=== PATIENT | female | born 1990 | race Caucasian/White ===

== ENCOUNTER 2023-12-15 16:41 | Outpatient (CLI) | payer OTHER, SELFPAY ==
--- NOTE | 2023-12-15 17:00 | CRLHL7_ITS ---
For Patients: As a result of the Century Cures Act, medical imaging exams and procedure reports are released immediately into your electronic medical record. You may view this report before your referring provider. If you have questions, please contact your health care provider. INDICATION: First trimester scan, establish dates. COMPARISON: None. TECHNIQUE: Real-time nunez-scale imaging of the pelvis was performed. FINDINGS: Sonographic imaging demonstrates a single living intrauterine gestation. The embryo demonstrates a regular cardiac rate measuring 169 beats per minute. The embryo`s crown-rump length measurement of 2.7 cm corresponds to a gestational age of 9 weeks 4 days with a sonographic due date of 07/15/2024. There is a normal-appearing yolk sac. There are no gross abnormalities noted within the embryo at this early state of development. The gestational sac has a normal appearance. There is a 2.0 x 1.5 x 1.2 cm perigestational hemorrhage. The amount of fluid within the sac appears appropriate for gestational age. The cervix is closed. The myometrium appears normal. The ovaries are of normal size. Corpus luteal cyst right ovary. There are no suspicious fluid collections noted in the cul-de-sac. IMPRESSION: Single living intrauterine with sonographic gestational age 9 weeks 4 days and sonographic due date 07/15/2024. Left-sided subchorionic hemorrhage measuring 2.0 x 1.5 x 1.2 cm. Dictated by John Arredondo MD @ 12/16/2023 11:45:04 AM (Electronically Signed)
== END 2023-12-15 16:42 | disposition home or self-care (01) ==
LOC: US 16:41
PROVIDERS: Visit Provider Physician Assistant
DX: Z34.91 Encounter for supervision of normal pregnancy, unspecified, first trimester (principal); O20.9 Hemorrhage in early pregnancy, unspecified; Z3A.09 9 weeks gestation of pregnancy
CPT/HCPCS: 76817

== ENCOUNTER 2023-12-15 18:12 | Outpatient (CLI) | payer OTHER, SELFPAY ==
[2023-12-15 21:50] LABS: Chlamydia DNA Amplified* Not Detected (No Detected); GC DNA Amplified* Not Detected (No Detected)
== END 2023-12-15 18:13 | disposition home or self-care (01) ==
PROVIDERS: PCP Physician Assistant; Visit Provider Physician Assistant
DX: Z34.01 Encounter for supervision of normal first pregnancy, first trimester (principal); Z67.41 Type O blood, Rh negative
CPT/HCPCS: 86592; 86703; 86704; 86706; 86762; 86787; 86803; 86850; 86900; 86901; 87086; 87340; 87491; 87591

== ENCOUNTER 2024-03-08 15:43 | Outpatient (CLI) | payer OTHER, SELFPAY ==
--- NOTE | 2024-03-08 16:00 | US_ITS ---
Patient: OK HUERTA Facility:?[facility] Patient ID:?[id number] Site Patient ID:?[id number]. Site :?1991 Study:?US-OB Pelvis anatomy-03/08/2024 4:43:47 PM Ordering Physician:Daina Valladares Final Report: OB ULTRASOUND LMP: 10/08/2024. LULA by LMP: 07/14/2024. GA: 21w, 5d. Single. INDICATION: screen. COMPARISON: None. position: Vertex. Cervix: Visualized. Technique: Transabdominal. Length of closed cervix: 3.3 cm. Placenta/cord: Anterior. Technique: Transabdominal. Placenta tip to internal OS: 9.6 cm. Umbilical Cord: 3-vessel cord. Placenta insertion: Central. Amniotic Fluid: 4.1 cm SDP SURVEY: Observed Structures Cerebellum: Yes. 2.3 cm; 22 w 6 d. Cisterna Magna: Yes. 5.5 mm. Nuchal Fold: Yes. 3.3 mm. Lateral Ventricle: Yes. 5.4 mm. CSP: Yes. Midline Falx: Yes. Choroid Plexus: Yes. Spine: Yes. Stomach: Yes. Abd Cord Insertion: Yes. Urinary Bladder: Yes. Kidneys: Yes. Diaphragm: Yes. Nose/lips: Yes. Orbital view: Yes. Profile: Yes. Upper Extremities: Yes. Lower Extremities: Yes. Hands: Yes. Feet: Yes. Four-Chamber Heart: Yes. LVOT: Yes. RVOT: Yes. 3VV: Yes. 3VTV: Yes. BPD: 5.4 cm. 22 w 4 d, 78%. HC: 19.6 cm. 21 w 5 d, 40%. AC: 16.0 cm. 21 w 0 d, 22%. FL: 3.6 cm. 21 w 2 d, 27%. FL/AC: 22.45%. HC/AC Ratio: 1.23. Heart rate: 152 beats per minute. age by this US: 21 w 6 d. LULA by this US: 07/13/2024. EFW: 413 g. Weight: 15 oz. Percentile by LULA: 24%. IMPRESSION: 1. Single viable intrauterine . 2. Estimated weight 24th percentile. 3. Normal anatomic survey. Jorge Jenkins M.D. Body/Diagnostic Radiologist [email or web address] D& Transcribed: 10:00 a.mNiharika barber/Dictated by: Jorge Jenkins MD @ 03/09/2024 8:54:00 AM Signed by:?Jorge Jenkins MD @03/09/2024 10:06:23 AM (Electronic Signature)
== END 2024-03-08 15:44 | disposition home or self-care (01) ==
LOC: US 15:43
PROVIDERS: Visit Provider Advanced Practice Midwife
DX: Z34.92 Encounter for supervision of normal pregnancy, unspecified, second trimester (principal); Z3A.21 21 weeks gestation of pregnancy
CPT/HCPCS: 76805

== ENCOUNTER 2024-04-26 08:09 | Outpatient (CLI) | payer OTHER, SELFPAY | END 2024-04-26 08:10 | disposition home or self-care (01) | PROVIDERS: Visit Provider Advanced Practice Midwife | DX: Z34.02 Encounter for supervision of normal first pregnancy, second trimester (principal) | CPT/HCPCS: 86592; 86850 ==

== ENCOUNTER 2024-06-21 08:30 | Outpatient (CLI) | payer OTHER, SELFPAY | END 2024-06-21 08:31 | disposition home or self-care (01) | LOC: NFLDREF 06-23 10:20 | PROVIDERS: Visit Provider Advanced Practice Midwife | DX: Z34.03 Encounter for supervision of normal first pregnancy, third trimester (principal) | CPT/HCPCS: 87081; 87653 ==

== ENCOUNTER 2024-06-22 09:14 | Outpatient (CLI) | payer OTHER, SELFPAY ==
--- NOTE | 2024-06-22 09:30 | CRLHL7_ITS ---
For Patients: As a result of the Century Cures Act, medical imaging exams and procedure reports are released immediately into your electronic medical record. You may view this report before your referring provider. If you have questions, please contact your health care provider. INDICATION: Third trimester scan, evaluate growth. small for dates COMPARISON: 03/08/2024 TECHNIQUE: Real time nunez scale imaging of the fetus was performed. FINDINGS: Sonographic imaging demonstrates a single living intrauterine gestation. Fetus demonstrates a regular cardiac rate of 129 beats per minute. Fetus has a vertex position. The placenta lies anterior. Amniotic fluid volume appears normal and there is a single deepest vertical pocket: 5.4 cm. The estimated weight is 2805gm which lies at the 31st %. On the prior OB ultrasound exam dated 03/08/2024 the estimated weight was at the 24th%. BPD less than 3rd percentile. HC 55th percentile. AC 58th percentile. FL 41st percentile. The HC/AC ratio measures 1.02 range (0.93-1.10). Renal pelvis measures 4.2 millimeters, considered normal. IMPRESSION: Sonographic gestational age 35 weeks 2 days and a sonographic due date 07/25/2024. Sonographic age 11 days behind the clinical age. Estimated weight 31st percentile. Abdominal circumference 58th percentile. BPD less than 3rd percentile. Dictated by John Arredondo MD @ 06/23/2024 6:44:41 AM (Electronically Signed)
== END 2024-06-22 09:15 | disposition home or self-care (01) ==
LOC: US 09:14
PROVIDERS: Visit Provider Advanced Practice Midwife
DX: O36.5930 Maternal care for other known or suspected poor fetal growth, third trimester, not applicable or unspecified (principal); Z3A.35 35 weeks gestation of pregnancy
CPT/HCPCS: 76816

== ENCOUNTER 2024-07-20 03:57 | Outpatient (CLI) | payer OTHER, SELFPAY ==
[2024-07-20 04:14] VITALS: PULSE 62; O2SAT 98
[2024-07-20 04:15] VITALS: BP 122/72; PULSE 57; TEMP 37
--- NOTE | 2024-07-27 08:51 | PC.OBNST ---
NST Note NST Note Start: 07/20/24 04:01 Freq: ONCE Status: Discharge Protocol: Document 07/20/24 06:43 [email or web address] (Rec: 07/20/24 06:45 TALA Mora) NST Note 1 Para (# of births) 0 EDC 07/14/24 Gestational Age In Weeks & Days 40 Weeks & 6 Days Patient Presented with Complaint(s) of Contractions/cramping Other Complaints Initial SVE was 1.5/50/0 way off to the left with a lot of brown discharge with exam. 1.5 hours later after being up and walking her SVE was 2/70/0 and much more mid position. Strip is beautifully reactive. Her contractions are mild/ moderate intensity. She appears fairly comfortable still. Reactive Yes Appropriate for Gestational Age Yes JESUS Rocha Case Date 07/20/24 Reactive Yes Appropriate for Gestational Age Yes JESUS Albert RN Date 07/20/24 OB NST charge Yes Complete NST Note via Write Note Yes The provider's electronic signature indicates the NST is reactive/appropriate for gestational age. *Note to provider: If an addendum is required, open the patient's chart and click on the note under the Nurse/Allied Health tab.
== END 2024-07-20 06:28 | disposition home or self-care (01) ==
LOC: OB OUT 03:57 → OB 03:58
PROVIDERS: Visit Provider Advanced Practice Midwife
DX: Z34.93 Encounter for supervision of normal pregnancy, unspecified, third trimester (principal); Z3A.40 40 weeks gestation of pregnancy
CPT/HCPCS: 59025; G0463

== ENCOUNTER 2024-07-21 07:41 | Inpatient (IN) | payer OTHER, SELFPAY ==
[2024-07-21] VITALS (22 sets, daily range): BP systolic 112–148; BP diastolic 48–72; PULSE 52–69; RESP 16–18; TEMP 36.3–37.1; O2SAT 95–100; BMI 31.7
--- NOTE | 2024-07-21 08:02 | P.LDBA_ITS ---
Documented by User: Suzanne Oconnor CNM 07/21/24 09:00 Subjective History of Present Illness Time Seen by Provider: 08:03 Date Seen: 07/21/24 Narrative: Patient is being admitted to Labor and Delivery for prodromal labor, desiring augmentation and therapeutic rest with morphine. She is a 33 year old at 41w0d gestation. Her full history and physical was dictated by Howie Charles CNM on 06/28/2024. Please see this for details. Specific Issues/Plans H&P done by Jessica Charles CNM on 06/28/24 1. Rh negative, O neg Rhogam: NA, FOB is Rh negative-have documentation to confirm 2. Anatomy scan WNL, EFW 24%. Consider follow up if measuring small. Growth US ordered at 36 wks: EFW 31% Flu shot: Declines COVID shot: Declines OB - Problem Based A/P Additional Plan (1) : Status: Acute (2) GBS (group B Streptococcus carrier), +RV culture, currently : Status: Acute (3) Rh negative status during : Status: Acute (4) Desultory labor: Status: Acute (5) Pain during labor: Status: Acute Plan ASSESSMENT:? at 41 weeks gestation? GBS positive? Uncomplicated ? Postterm augmentation for prodromal labor? Blood type:?O neg ?? PLAN:? 1. Antibiotic prophylaxis treatment per protocol? 2. Reviewed risks and benefits of IOL with pitocin vs cytotec. After discussion, plan to start Pitocin.? 3. Desires water . Consent signed. Hep C negative.? 4. Candidate for analgesia of choice. Planning unmedicated .? 5. Anticipate ? 6. Expectant management at this time.? 7. IV and monitoring plan?per policy 8. Give morphine 10mg IM with vistaril 100mg now for therapeutic rest. ? OB Result Labs Blood Type: 0 (-) negative GBS Status: positive OB Exam Physical Exam Vital signs: Pulse BP Pulse Ox 65 125/72 95 07/21/24 05:45 07/21/24 05:45 07/21/24 05:45 Detailed Labor and Delivery Exam Patient Gravid: Yes Dilation (cm): 3 Effacement (%): 80 Consistency: soft Contraction Frequency: q3-4min Contraction duration (sec): 90 Tachysystole: No Contraction intensity: Moderate Fetus (Single) Station: 0 Amniotic Membrane Status: intact Heart Rate Baseline: 120 Monitor Accelerations: Present Monitor Decelerations: None Mat Cleaning Machine Operator Variability: Moderate (6-25) Documented by User: Goldie Carrasquillo CNM 07/21/24 15:52 Subjective History of Present Illness Specific Issues/Plans H&P done by Jessica Charles CNM on 06/28/24 1. Rh negative, O neg Rhogam: NA, FOB is Rh negative-have documentation to confirm 2. Anatomy scan WNL, EFW 24%. Consider follow up if measuring small. Growth US ordered at 36 wks: EFW 31% Flu shot: Declines COVID shot: Declines OB - Problem Based A/P Additional Plan (1) : Status: Acute (2) GBS (group B Streptococcus carrier), +RV culture, currently : Status: Acute (3) Rh negative status during : Status: Acute (4) Desultory labor: Status: Acute (5) Pain during labor: Status: Acute Plan ASSESSMENT:? G[]P[] at [] weeks gestation? GBS []? Uncomplicated ? Elevated BP on admit? Postterm IOL? Blood type:? ?? PLAN:? 1. [Antibiotic prophylaxis treatment per protocol]? 2. Reviewed risks and benefits of IOL with pitocin vs cytotec. Pt prefers cytotec. Pitocin to follow if needed.? 3. Desires water . Consent signed. Hep C negative.? 4. Candidate for analgesia of choice. Planning unmedicated .? 5. Monitor blood pressures. Consider labs if continue to be elevated.? 6. Anticipate ? 7. Expectant management at this time.? 8. IV and monitoring plan? ?
[2024-07-21 08:42] LABS: Basophils Absolute Auto 0.03 K/uL (0.00-0.30); Basophils Percent Auto 0.3 % (0.0-3.0); Eosinophils Absolute Auto 0.05 K/uL (0.00-0.50); Eosinophils Percent Auto 0.5 % (0.0-7.0); Hematocrit 35.2 % (33.0-51.0); Hemoglobin* 12.1 gm/dL (12.0-16.0); Immature Granulocytes Abs Auto 0.04 K/uL (0.00-0.30); Immature Granulocytes Pct Auto 0.4 %; Lymphocytes Percent Auto 11.1 % (20-44); Mean Corpuscular HGB Conc 34 gm/dL (32-36); Mean Corpuscular Hemoglobin 31 pg (26-34); Mean Corpuscular Volume 89 fL (80-100); Monocytes Percent Auto 5.1 % (0.0-11.0); Neutrophils Percent Auto 82.6 % (42.0-72.0); Platelet Count* 242 K/uL (140-440); RDW Coefficient of Variation % 12.2 % (11.5-15.5); Red Blood Count 3.96 m/uL (4.00-5.20); White Blood Count* 10.35 K/uL (4.50-11.00)
[2024-07-21] MEDS: MORPHINE 10 MG/ML inj IM (08:47)
[2024-07-21] MEDS: hydrOXYzine pamoate 25 MG CAPSULE 100 MG PO (08:47)
[2024-07-21 08:54] LABS: Slide Review Reflex No
[2024-07-21] MEDS: LACTATED RINGERS 1000 ML 1,000 ML 124 ML IV (10:01)
[2024-07-21] MEDS: OXYTOCIN 30 unit/500 ML in NS 30 UNIT/500 ML BAG IVPB (10:01)
[2024-07-21 14:53] LABS: Hematocrit 36.2 % (33.0-51.0); Hemoglobin* 12.6 gm/dL (12.0-16.0); Mean Corpuscular HGB Conc 35 gm/dL (32-36); Mean Corpuscular Hemoglobin 31 pg (26-34); Mean Corpuscular Volume 88 fL (80-100); Platelet Count* 236 K/uL (140-440); White Blood Count* 14.51 K/uL (4.50-11.00)
[2024-07-21 15:12] LABS: Slide Review Reflex No
[2024-07-21 15:15] LABS: Creatinine* 0.5 mg/dL (0.5-1.5); Est. Creatinine Clearance* 139.49; Estimated Glomerular Filt Rate 128 ml/min
[2024-07-21 15:16] LABS: Alanine Aminotransferase* 17 U/L (4-35); Aspartate Amino Transferase* 36 U/L (12-35); Blood Urea Nitrogen* 6 mg/dL (5-24); Total Protein Urine 34 mg/dL
[2024-07-21 15:17] LABS: Creatinine Urine 167.8 mg/dL
[2024-07-21] MEDS: AMPICILLIN 2 GM in 0.9 % SODIUM CHLORIDE Mini-bag 100 ML IVPB (15:57)
[2024-07-21] MEDS: CALCIUM CARBONATE 500 MG CHEW PO (16:01)
--- NOTE | 2024-07-21 16:45 | PM.OBPNL ---
Subjective Time Seen by Provider: 12:30 Date Seen: 07/21/24 Objective Vital Signs: Last Vital Signs Temp 97.9 F 07/21/24 08:19 Pulse 53 L 07/21/24 16:02 Resp 16 07/21/24 08:19 BP 148/71 H 07/21/24 16:02 Pulse Ox 100 07/21/24 16:00 Comments: Silva was able to sleep for a few hours this morning and feels much more rested than previously. Pitocin was started and she has been nino regularly. She is coping well and is able to talk trough the contractions. Declines a cervical check at this time. Contractions Monitor mode: External Contraction Frequency: 2-4 Contraction pattern: Regular Contraction intensity: Moderate Pitocin Rate (mU/min): 3 Assessment Assessment: prodromal labor Station: 0 Status: Category ll Heart Rate Baseline: 120 [place] Feeder Variability: Moderate (6-25) Monitor Accelerations: Present Monitor Decelerations: Early Plan Plan: ASSESSMENT:? at 41 weeks gestation? GBS positive? Uncomplicated ? Postterm augmentation for prodromal labor? Blood type:?O neg ?? PLAN:? 1. Antibiotic prophylaxis treatment per protocol. Begin with active labor. ? 2. Continue with Pitocin augmentation.? 3. Desires water . Consent signed. Hep C negative.? 4. Candidate for analgesia of choice. Planning unmedicated .? 5. Anticipate ? 7. IV and monitoring plan?per policy
--- NOTE | 2024-07-21 16:50 | PM.OBPNL ---
Subjective Date Seen: 07/21/24 Narrative: Silva has continued to have regular contractions that have increased in intensity. Over the last 15-20 minutes she has begun to feel pressure with the contractions. She is requesting hydrotherapy and the tub is currently being filled. her Pitocin remains at 3mU/min. Declines SVE at this time. Denies leaking fluids. Prophylactic antibiotics were began around 1400. Objective Vital Signs: Last Vital Signs Temp 97.9 F 07/21/24 08:19 Pulse 53 L 07/21/24 16:02 Resp 16 07/21/24 08:19 BP 148/71 H 07/21/24 16:02 Pulse Ox 100 07/21/24 16:00 Contractions Monitor mode: External Contraction Frequency: 2-3 Contraction pattern: Regular Contraction intensity: Strong/Firm Pitocin Rate (mU/min): 3 Assessment Assessment: active labor Station: 0 Status: Category l Heart Rate Baseline: 125 Order Tracer Variability: Moderate (6-25) Monitor Accelerations: Present Monitor Decelerations: None Plan Plan: ASSESSMENT:? at 41 weeks gestation? GBS positive? Uncomplicated ? Labor type: augmented prodromal labor, now active labor? Blood type:?O neg ?? PLAN:? 1. Continue antibiotic prophylaxis treatment per protocol.? 2. Continue with Pitocin augmentation. Can consider decreasing rate if contractions continue and coping decreases. ? 3. Desires water . Consent signed. Hep C negative.? 4. Candidate for analgesia of choice. Planning unmedicated .? 5. Anticipate ? 6. Encourage ambulation and position changes to promote physiologic labor and .? 7. IV and monitoring plan?per policy
[2024-07-21] MEDS: AMPICILLIN 1 GM in 0.9 % SODIUM CHLORIDE Mini-bag 100 ML IVPB (19:32)
--- NOTE | 2024-07-21 20:22 | W.PM.OBVAGDE ---
OB Procedure Vag Delivery Mother Details Mother Details: The patient is a 33 year-old, 1, Para 0,t admitted on 07/21/24 at 41.0 Days gestation. : 1 Para: 1 Weeks Gestation: 41.0 Admission Date: 07/21/24 Additional Details Amniotic Membrane Status: intact Amniotic Membrane Rupture Date: 07/21/24 Amniotic Membrane Rupture Time: 17:21 Amniotic Membrane Fluid Description: Clear Analgesia/Anesthesia Type: None Waterbirth: Yes Pitcoin: Yes (augmentation and AMTSL) Intrapartal Events: Labor Augmentation Delivery augmentation: pitocin Labor Onset: 15:45 Complete: 17:21 Pushin:55 Heart: heart tones during second stage were category 2 but difficult to trace despite frequent readjustments. Baseline 120's with moderate variability and + accels. Variable decels with good return to baseline. Difficult to determine type of decel in the last 15 minutes of pushing with . Delivery Details Delivery Date: 07/21/24 Delivery Time: 19:52 Route of delivery: Gender: Female Viability: Alive; Heart Rate Present Position at Delivery: OA Delivery Details: Patient was admitted for latent labor at 41.0 weeks desiring augmentation with Pitocin. SROM noted at 1721 with clear fluid. Patient was complete at 1721 and pushing at 1755. of a viable female at 1952 on her back supported by her partner in the tub. Vertex delivered OA. No nuchal cord or shoulder. Body delivered easily and without incident. Body cord was noted after delivery and was easily reduced before infant passed to mothers abdomen. Stimulation was used to elicit a cry. Cord was clamped and cut at about 1 minute due to lack of respiratory effort, tone, and color for baby to be brought to the warmer for stimulation and assessment. Improved after going to the warmer and baby was returned to mom shortly after when she was brought to the bed and settle in bed. APGARS were 6 at one minute and 8 at five minutes respectively. Mouth was bulb suctioned. Cord blood was collected. Intact placenta with a 3 vessel cord delivered spontaneously at 2000. It was noted to have a marginal cord insertion. Fundus firm. 1st identified and not repaired after shared decision making as it was hemostatic. There was a labial split noted on the superior labia near the clitoris that appears to have been present before delivery. There was no obvious laceration noted on the superior portion of the labial split and minimal tear to the inferior portion. She denies knowing that it was there, irritation present at that site prior to delivery, or know trauma. Presumably it was present before delivery. There was not a way to consider repair that would adhere so after shared decision making it was decided not to attempt a repair. QBL 50 cc. Mother and baby stable; mother plans to breastfeed. weight 6lb 6oz.? 1 Minute Interval Total Score: 6 5 Minute Interval Total Score: 8 Additional Details Shoulder Dystocia: No Placenta Delivery Time: 20:01 Placental Delivery Description: Spontaneous Procedure Done: Global Blood Loss: 50 Laceration: Perineal - 1st Degree (not repaired ) Episiotomy Description: None Blood Loss Measurement Type: QBL Bakri Used: No Sponge/Need Count Correct: Yes Cord Vessel Description: 3 Vessels, Loose and Around Body Event Summary Status: Mother and infant were stable after delivery. Disposition: floor
[2024-07-21] MEDS: IBUPROFEN 600 MG TABLET PO (21:14)
[2024-07-22 00:19] VITALS: BP 113/63; PULSE 69; RESP 16; TEMP 37; O2SAT 96
[2024-07-22 03:39] VITALS: BP 121/73; PULSE 69; RESP 16; TEMP 37.1; O2SAT 97
[2024-07-22] MEDS: IBUPROFEN 600 MG TABLET PO ×4 (03:55→22:28)
--- NOTE | 2024-07-22 08:18 | P.OBPN_ITS ---
OB - PN:Subj Subjective Date Seen: 07/22/24 Narrative: Silva is a 33 y.o. G 1 P 1 who was admitted to L & D for induction of labor after days of prodromal for post-dates. ?She had a NVD that was uncomplicated. The patient feels well. ?The pain is well controlled with current medications. ?She has no new complaints. ?She is breast feeding and reports things are going well. the patient has done well.? Vitals have been stable.? She has remained afebrile.? Has a good appetite, is tolerating a general diet. ?She is voiding without difficulty.? She is passing gas and has not had a bowel movement.? She is ambulating and denies any dizziness.? Has small amount of rubra lochia. Problems: none OB - PN: Obj Exam Physical Exam: Vital signs: Temp Pulse Resp BP Pulse Ox O2 Del Method 98.8 F 69 16 121/73 97 Room Air 07/22/24 03:39 07/22/24 03:39 07/22/24 03:39 07/22/24 03:39 07/22/24 03:39 07/22/24 03:39 Narrative: GENERAL APPEARANCE:? normal affect, alert, no distress MOOD:? appropriate CHEST:? clear to auscultation HEART:? regular rate and rhythm ABDOMEN:? soft, non-tender the uterine fundus is At Umbilicus, Midline and is appropriate for the stage of recovery. PERINEUM:? mild edema of the perineum, there is a Perineal Laceration,?1st degree that is healing well. EXTREMITIES:? normal and no edema OB - PN: Obj Data Labs Labs: Laboratory Results - last 24 hr 07/21/24 07/21/24 08:05 14:44 WBC 10.35 14.51 H RBC 3.96 L 4.10 Hgb 12.1 12.6 Hct 35.2 36.2 MCV 89 88 MCH 31 31 MCHC 34 35 RDW Coeff of Juan 12.2 Plt Count 242 236 Neut % (Auto) 82.6 H Lymph % (Auto) 11.1 L [place] % (Auto) 5.1 Eos % (Auto) 0.5 Baso % (Auto) 0.3 Neut # (Auto) 8.50 H Lymph # (Auto) 1.10 [place] # (Auto) 0.50 Eos # (Auto) 0.05 Baso # (Auto) 0.03 Abs Immat Gran (auto) 0.04 Imm/Tot Granulo (auto) 0.4 BUN 6 Creatinine 0.5 Estimated Creat Clear 139.49 Estimated GFR 128 AST 36 H ALT 17 Urine Creatinine 167.8 Protein/Creatinin Ratio 0.20 H Urine Total Protein 34 Blood Type O Negative Antibody Screen NEGATIVE OB - PN: A/P Delivery Assessment and Plan (1) care and examination immediately after delivery: Status: Acute (2) Rh negative status during : Status: Acute (3) Lactating mother: Status: Acute Plan day: 1 Plan: routine care Comments: plan: Routine OB, return in 4 weeks , may see if needed Hgb 12.6 prior to delivery. GHTN diagnosed by elevated BP greater than 4 hours apart Labs WNL Discharge home with BP cuff if does not already have one Follow up in 3-5 days Call for signs/symptoms of preeclampsia
[2024-07-22 08:22] VITALS: BP 118/69; PULSE 60; RESP 16; TEMP 36.6; O2SAT 96
[2024-07-22] MEDS: DOCUSATE SODIUM 100 MG CAPSULE PO (10:26)
[2024-07-22 13:09] VITALS: BP 126/79; PULSE 62; RESP 16; TEMP 36.6; O2SAT 97
[2024-07-22 16:38] VITALS: BP 128/80; PULSE 69; RESP 16; TEMP 36.6; O2SAT 97
[2024-07-22 22:00] VITALS: BP 122/81; PULSE 67; RESP 16; TEMP 36.8; O2SAT 98
[2024-07-23 01:41] LABS: Rapid Plasma Reagin (RPR) Non Reactive (Non Reactive)
[2024-07-23 06:13] VITALS: BP 132/79; PULSE 78; RESP 16; TEMP 37; O2SAT 98
[2024-07-23 09:00] VITALS: BP 131/85; PULSE 67; RESP 16; TEMP 36.6; O2SAT 98
--- NOTE | 2024-07-23 09:00 | PM.OBDSVD1 ---
DS: Providers Provider Date Seen: 07/23/24 Date of admission: 07/21/24 07:41 Primary care physician: Not a Local Provider Admitting Clinician: Goldie Carrasquillo CNM Attending Physician on discharge: Ines Baker CNM Date of Discharge: 07/23/24 DS: Diagnosis Discharge Diagnosis (1) care following vaginal delivery: Status: Acute (2) Lactating mother: Status: Acute Exam Narrative: Exam Narrative: GENERAL APPEARANCE:? normal affect, alert, no distress? MOOD:? appropriate? CHEST:? clear to auscultation and percussion? HEART:? regular rate and rhythm? ABDOMEN:? soft, non-tender the uterine fundus is U/2 and is appropriate for the stage of recovery. PERINEUM:? mild edema of the perineum, there is a 1st degree laceration that is healing well.? EXTREMITIES:? normal and no edema? Const: Vital Signs, click to edit/add: Vital Signs - 24 hr 07/22/24 13:09 07/22/24 16:38 07/22/24 22:00 Temperature 97.8 F 97.9 F 98.2 F Pulse Rate [Pulse Oximeter] 62 69 67 Respiratory Rate 16 16 16 Blood Pressure [Ri ght Arm] 126/79 128/80 122/81 Pulse Oximetry 97 97 98 Oxygen Delivery Me thod Room Air Room Air Room Air 07/23/24 06:13 Temperature 98.6 F Pulse Rate [Pulse Oximeter] 78 Respiratory Rate 16 Blood Pressure [Ri ght Arm] 132/79 Pulse Oximetry 98 Oxygen Delivery Me thod Room Air Documenting provider has reviewed patient's vital signs: yes OB - DS: Summary Hospital Course Hospital Course: Silva is a 33 year old G 1 P 1 at 41.0 weeks gestation that was admitted to the Center on 07/21/24 for prodromal labor. She had an uncomplicated vaginal delivery. She delivered a viable female . She is breast feeding and denies complications or concerns at this time. the patient has done well. Her pain is well controlled with current medications.? She has no new complaints.? Urinary output is adequate and she is voiding without difficulty.? Has a good appetite, is tolerating a general diet, is passing flatus, and has not yet had a bowel movement.? Has scant amount of rubra lochia.? She is ambulating well. Blood pressures have been stable since delivery. Will plan to send home a blood pressure cuff and recheck in the clinic in 3-5 days. Reviewed s/sx of preeclampsia. She is planning NFP and condoms for contraception. Peripartum Data delivery method: Vaginal Laceration description: Perineal - 1st Degree Episiotomy description: None complications: none Gender: Female Infant Discharge Plan: Home Status at Discharge Functional status at discharge: independent ambulation Overall status at discharge: patient is progressing back to baseline Time Spent with Patient Time attestation: Total time spent providing and/or coordinating discharge services: Discharge Plan Discharge Disposition: Home, Self-Care Date of Admission: 07/21/24 07:41 Primary Care Provider: Provider,Not a Local Condition: Stable Anticipated Discharge Date/Time: 07/23/24 00:00 Discharge Medications: New docusate sodium 100 mg Capsule 100 mg PO DAILY Qty: 90 0RF Rx Instructions: Take 1-2 tablets daily as needed for constipation. ibuprofen 600 mg Tablet 600 mg PO Q6H PRNQty: 30 0RF Continued Fish Oil 360-1,200 mg capsule,delayed release(DR/EC) 2 cap PO QDAY DHA 200 mg capsule 200 mg PO DAILY vitamin K2 100 mcg capsule 100 mcg PO QDAY ascorbic acid-elderberry fruit 100-50 mg tablet,chewable 1 tab PO DAILY cholecalciferol (vitamin D3) 50 mcg (2,000 unit) capsule 50 mcg PO QDAY magnesium oxide 200 mg magnesium tablet 200 mg PO BID Discharge Orders: Discharge Order (Routine); Ordered 07/23/24 Ordered By: Goldie Cararsquillo Patient Education: OB Vaginal/Breast Feeding Additional Instructions: Discharge instructions were reviewed with the patient including signs and symptoms of infection and home going medications.? Lifting Restrictions: 20 pounds for 6? weeks? ?? Do not drive while taking narcotic pain meds.? Off Work or School for 6 weeks.? ?? Symptoms to report to doctor:? -Bleeding that saturates more than one pad per hour? -Passing clots larger than the size of a golf ball? -Pain not relieved by prescribed medication? -Fever above 100.4 degrees Fahrenheit? -A foul vaginal odor? -Difficulty in emotions, mood and functions? -Thoughts of hurting yourself and/or ? -Painful, reddened area in your breast? -Any drainage, redness or tenderness in your IV/epidural site? -Severe headache that doesn't improve after taking medications? -Changes in vision, including temporary loss of vision, blurred vision, and/or light sensitivity? -Upper abdominal pain (usually under ribs on the right side)? -Decrease in urination or painful, frequent urinating? -Chest pain? -Shortness of breath? -Tenderness or pain with redness and/swelling in the calf(s) of your leg? ?? Blood pressure check in the clinic in 3-5 days. Follow Up in clinic in 2 and 6 weeks.? ?? consultation services are available to all mothers and babies for the first year after delivery.? To make an appointment, please call [phone].? Activity Level: Activity as Tolerated Discharge Diet: Regular Follow Up Appointments: Provider,Not a Local [Primary Care Provider] - [facility] [Provider Group] Forms: MyHealth Info Instructions
[2024-07-23] MEDS: IBUPROFEN 600 MG TABLET PO (09:21)
[2024-07-23] MEDS: DOCUSATE SODIUM 100 MG CAPSULE PO (09:21)
== END 2024-07-23 11:30 | disposition home or self-care (01) | DRG 807 ==
LOC: OB OUT 07:43 → OB 07:43
PROVIDERS: Admitting Provider Advanced Practice Midwife; Visit Provider Midwife
DX: O48.0 Post-term pregnancy (principal); Z37.0 Single live birth; Z3A.41 41 weeks gestation of pregnancy; O26.893 Other specified pregnancy related conditions, third trimester; Z67.41 Type O blood, Rh negative; O99.824 Streptococcus B carrier state complicating childbirth; O69.89X0 Labor and delivery complicated by other cord complications, not applicable or unspecified; O70.0 First degree perineal laceration during delivery; O13.5 Gestational [pregnancy-induced] hypertension without significant proteinuria, complicating the puerperium
CPT/HCPCS: 36415; 82565; 82570; 84156; 84450; 84460; 84520; 85025; 85027; 86592; 86850; 86900; 86901; G0463; A9270; J0290; J2270; J7120

== ENCOUNTER 2024-07-26 10:15 | Outpatient (CLI) | payer OTHER, SELFPAY | END 2024-07-26 10:16 | disposition home or self-care (01) | PROVIDERS: Visit Provider Advanced Practice Midwife | DX: O13.5 Gestational [pregnancy-induced] hypertension without significant proteinuria, complicating the puerperium (principal) | CPT/HCPCS: 82565; 84450; 84460; 84520 ==

== ENCOUNTER 2024-07-27 12:45 | Outpatient (CLI) | payer OTHER, SELFPAY ==
--- NOTE | 2024-07-27 14:16 | W.PM.LAC.MC ---
Consult Note - Mom Date of Visit Date of visit: 07/27/24 service delivery management consultant: Danielle Gallego Visit Code: Visit Patient's Information Phone number: [phone] : 1 Para: 1 Allergies No Known Drug Allergies Allergy (Verified 07/19/24 08:29) Mother's Medical History: Medical History (Updated 07/27/24 @ 00:01 by Background Daemon) GBS (group B Streptococcus carrier), +RV culture, currently ?O99.820 - Streptococcus B carrier state complicating (ICD-10) Rh negative status during ?O26.899 - Other specified related conditions, unspecified trimester (ICD-10) ?Z67.91 - Unspecified blood type, rh negative (ICD-10) Tibial plateau fracture ?S82.143A - Displaced bicondylar fracture of unspecified tibia, initial encounter for closed fracture (ICD-10) Work Plans: Return to work at 10 weeks Delivery Information Delivery type: Vaginal Weeks Gestation: 41 Gestational Age: AGA Weight: 2.88 kg Discharge Weight: 2.77 kg (down 3.81% frbirth) Baby's Information Medications: none Baby's Age at Visit: 6 days Baby's Provider or Clinic: [facility] Jaundice: No Reason for Consult Reason for Consult: First time questions, pumping questions, latch painful Past Experience Past Experience: No Current Frequency of Day Feedings: every 2-4 hours Frequency of Night Feedings: every 3-4 hours, did one 5 hr stretch (inadvertently) Both Breasts: Yes Suck: strong Latch: ok, mom needs to pull down lower lip Length of Time: 10-15m on 1st, 8-10m on 2nd Pumping Pumping: Yes (just twice so far) Quantity Pumped: 1 oz in 2 minutes Supplementing EMB Supplement: No Formula Supplement: No Baby Elimination Number of Wet Diapers a Day: 6+ Number of BM a Day: 6+, stools yellow/seedy Breast/Nipple Condition Breast Information: Breasts are symmetrical with rounded lower quadrants, intramammary distance is less than 1.5 inches. No erythema. Nipples are supple, everted prior to feeding, no cracks/blisters/bleeding/bruising noted. Engorgement: No Maternal Nipple Condition - Left: Common Nipple Maternal Nipple Condition - Right: Common Nipple Sore Nipples: Yes (slight at the beginning of the feeding) Interventions for Sore Nipples: Lansinoh (Mother Love cream), Soothies and Other (Silerettes) Onsite Pre-Feed weight: 2.916 kg Post-Feed weight: 3.008 kg Milk Transferred (mL): 92 (18 min on right side, 12 left side) Pre-Nursing Left Nipple: Within Normal Limits Pre-Nursing Right Nipple: Within Normal Limits Post-Nursing Left Nipple: Within Normal Limits Post-Nursing Right Nipple: Within Normal Limits Assessments/Interventions Assessments/Interventions: Worked with mom/taught asymmetrical latch technique for a wide, deep latch and mom reports increased comfort with this feeding. Reviewed in both football and cross cradle hold. Discussed normals of : regulation of supply, use of pump to relieve fullness if needed, but not to pump every feeding if not needed to prevent over supply. Discussed pumping to freeze milk as desired starting around 2 weeks; answered questions about pumping routine and milk storage. Nipple care reviewed as well. Mom to call with questions/concerns. Time spent reviewing chart and face to face with mom, and baby: 75 minutes Meds Home Medications and Allergies Home Medications ?Medication ?Instructions ?Recorded ?Confirmed ?Type ascorbic acid 100 mg-elderberry 1 tab PO DAILY 12/15/23 07/27/24 History fruit 50 mg chewable tablet cholecalciferol (vitamin D3) 50 50 mcg PO QDAY 12/15/23 07/27/24 History mcg (2,000 unit) capsule docosahexaenoic acid 200 mg 200 mg PO DAILY 12/15/23 07/27/24 History capsule ( DHA) omega-3 360 vo-tqz-aca-fish oil 2 cap PO QDAY 12/15/23 07/27/24 History 1,200 mg capsule,delayed release (Fish Oil) vitamin K2 100 mcg capsule 100 mcg PO QDAY 12/15/23 07/27/24 History magnesium oxide 200 mg PO BID 01/12/24 07/27/24 History Allergies Allergy/AdvReac Type Severity Reaction Status Date / Time No Known Drug Allergies Allergy Verified 07/19/24 08:29
== END 2024-07-27 12:46 | disposition home or self-care (01) ==
LOC: OB LAC 12:46
PROVIDERS: Visit Provider Obstetrics & Gynecology
DX: Z39.1 Encounter for care and examination of lactating mother (principal)
CPT/HCPCS: G0463